=== PATIENT | male | born 1975 | race Caucasian/White ===

== ENCOUNTER 2022-02-14 08:36 | Outpatient (CLI) | payer BC, SELFPAY ==
[2022-02-14 13:51] LABS: Basophils Absolute Auto 0.05 K/uL (0.00-0.30); Hematocrit 51.5 % (37.0-53.0); Hemoglobin* 17.7 gm/dL (13.5-17.5); Lymphocytes Absolute Auto 1.53 K/uL (0.90-2.90); Lymphocytes Percent Auto 30.4 % (20-44); Mean Corpuscular HGB Conc 34 gm/dL (32-36); Mean Corpuscular Hemoglobin 27 pg (26-34); Mean Corpuscular Volume 80 fL (80-100); Monocytes Percent Auto 10.5 % (0.0-11.0); Neutrophils Absolute Auto 2.72 K/uL (1.7-7.0); Neutrophils Percent Auto 54.1 % (42.0-72.0); Platelet Count* 261 K/uL (140-440); RDW Coefficient of Variation % 13.3 % (11.5-15.5); Red Blood Count 6.48 m/uL (4.30-5.90); White Blood Count* 5.03 K/uL (4.50-11.00)
[2022-02-14 13:52] LABS: Slide Review Reflex No
[2022-02-14 14:27] LABS: Cholesterol* 194 mg/dL (90-199); Glucose* 84 mg/dL (60-115); Triglycerides* 104 mg/dL (40-149)
[2022-02-14 14:28] LABS: HDL Cholesterol* 64 mg/dL (>=40); LDL Cholesterol Calculated 109 mg/dL (<100)
== END 2022-02-14 08:37 | disposition home or self-care (01) ==
PROVIDERS: PCP Nurse Practitioner Family; Visit Provider Nurse Practitioner Family
DX: Z13.1 Encounter for screening for diabetes mellitus (principal); Z13.0 Encounter for screening for diseases of the blood and blood-forming organs and certain disorders involving the immune mechanism; Z13.6 Encounter for screening for cardiovascular disorders
CPT/HCPCS: 80061; 82947; 85025

== ENCOUNTER 2023-02-13 08:37 | Outpatient (CLI) | payer BC, SELFPAY | END 2023-02-13 08:38 | disposition home or self-care (01) | PROVIDERS: PCP Nurse Practitioner Family; Visit Provider Nurse Practitioner Family | DX: Z13.9 Encounter for screening, unspecified (principal) | CPT/HCPCS: 82947; 84403 ==

== ENCOUNTER 2023-12-19 09:10 | Outpatient (CLI) | payer BC, SELFPAY | END 2023-12-19 09:11 | disposition home or self-care (01) | PROVIDERS: PCP Nurse Practitioner Family; Visit Provider Nurse Practitioner Family | DX: M25.50 Pain in unspecified joint (principal); M10.9 Gout, unspecified; M54.50 Low back pain, unspecified | CPT/HCPCS: 84550; 85651; 86038; 86039; 86140; 86200; 86431; 86812 ==

== ENCOUNTER 2024-02-11 07:59 | Outpatient (CLI) | payer BC, SELFPAY ==
--- NOTE | 2024-02-11 08:15 | CRLHL7_ITS ---
For Patients: As a result of the Century Cures Act, medical imaging exams and procedure reports are released immediately into your electronic medical record. You may view this report before your referring provider. If you have questions, please contact your health care provider. Technique: Double-contrast esophagram performed after the uneventful administration of effervescent crystals and thick barium followed by thin barium. Fluoroscopy time 1 minute 10 seconds. Indication: FOREIGN BODY SENSATION - THROAT Comparison: None. Findings: Esophagus: Normal morphology and motility. No stricture or mass. Gastroesophageal reflux: None. Impression: Normal double-contrast esophagram. Dictated by Cedric Arredondo MD @ 02/11/2024 12:04:55 PM (Electronically Signed)
== END 2024-02-11 08:00 | disposition home or self-care (01) ==
LOC: RAD 08:01
PROVIDERS: PCP Nurse Practitioner Family; Visit Provider Otolaryngology
DX: R13.10 Dysphagia, unspecified (principal); R09.A2 Foreign body sensation, throat
CPT/HCPCS: 74221

== ENCOUNTER 2024-03-01 18:13 | Outpatient (CLI) | payer BC, SELFPAY ==
--- NOTE | 2024-03-10 08:45 | W.PM.SLEEP ---
Sleep Study Details Details Interpreting Provider: Breann Date of Sleep Study: 03/01/24 Sleep Study Details: STUDY TYPE:? Home unattended ? BMI:? 31.9 ORDERING PROVIDER:? Breann INDICATION:? Concerns about sleep apnea ? SLEEP SUMMARY:? 416 minutes monitored RESPIRATORY SUMMARY:? AHI 27.4 Low oxygen 79 1% of study oxygen less than 90% Snoring 64.5% PERIODIC LIMB MOVEMENTS OF SLEEP:? Not record CARDIAC:? Range 53-105, mean 64.5 beats per minute IMPRESSION:? Moderate obstructive sleep apnea RECOMMENDATION: Treatment options include CPAP and dental appliance.
== END 2024-03-01 18:14 | disposition home or self-care (01) ==
LOC: SLEEP 18:14
PROVIDERS: PCP Nurse Practitioner Family; Visit Provider Otolaryngology
DX: G47.33 Obstructive sleep apnea (adult) (pediatric) (principal)
CPT/HCPCS: 95806

== ENCOUNTER 2024-03-22 08:55 | Outpatient (CLI) | payer BC, SELFPAY | END 2024-03-22 08:56 | disposition home or self-care (01) | PROVIDERS: PCP Nurse Practitioner Family; Visit Provider Nurse Practitioner Family | DX: R79.89 Other specified abnormal findings of blood chemistry (principal); M1A.9XX0 Chronic gout, unspecified, without tophus (tophi) | CPT/HCPCS: 84403; 84550 ==

== ENCOUNTER 2024-07-23 09:11 | Outpatient (CLI) | payer BC, SELFPAY | END 2024-07-23 09:12 | disposition home or self-care (01) | PROVIDERS: PCP Nurse Practitioner Family; Visit Provider Nurse Practitioner Family | DX: M10.9 Gout, unspecified (principal); Z13.228 Encounter for screening for other metabolic disorders; Z13.6 Encounter for screening for cardiovascular disorders; Z13.0 Encounter for screening for diseases of the blood and blood-forming organs and certain disorders involving the immune mechanism | CPT/HCPCS: 80053; 80061; 84550; 85025 ==

== ENCOUNTER 2024-08-27 13:20 | Outpatient (CLI) | payer BC, SELFPAY ==
--- NOTE | 2024-08-27 13:45 | MR_ITS ---
[address] [address] Phone:?[phone] Fax:?[phone] Referring Physician Information: Rick Rivera M.D. [address] [facility] [address] Phone:?[phone] Fax:?[phone] Patient:Matias Cat D.O.B:?1975 Sex:?Male Phone:?[phone] [facility] MRN:?[id number] Exam Date:?08/27/2024 EXAM: MRI of the LEFT KNEE, without contrast CLINICAL: Evaluate for medial meniscal tear. COMPARISONS: X-rays 08/24/2024. TECHNICAL: Multiplanar multisequence MRI of the left knee was obtained. SEDATION: None. CONTRAST: None. FINDINGS: Ligaments: ACL: Intact and unremarkable. PCL: Intact and unremarkable. MCL: There is mild soft tissue edema about the MCL which is likely reactive to the adjacent medial meniscal pathology. MCL otherwise appears intact. LCL: Intact and unremarkable. Posterolateral corner: Popliteus, biceps femoris, iliotibial band, and the popliteofibular ligament appear intact. Posteromedial corner: Semimembranosus, pes anserine tendons and posterior oblique ligament appear intact. Extensor mechanism: Patellar tendon: Intact, without tendinopathy. Quadriceps tendon: Intact, without tendinopathy. Retinacula: Medial and lateral retinacula are intact. Fat pads: There is increased edema involving superior Hoffa's fat. Patellofemoral joint: Patella: No significant chondromalacia. Trochlea: Deep chondral fissuring and small segment of deep chondral delamination involves the superior central trochlea on axial series 4 images 12- 13. There is also grade 2 and 3 chondral loss involving the central trochlea inferior to this extending into the medial trochlea with adjacent subchondral reactive marrow edema. Medial compartment: Medial meniscus: There is horizontal dominant complex tearing involving the posterior horn extending into the body segment on sagittal series 6 image 7-9 and coronal series 8 image 19-23. No significant meniscal displacement. Medial cartilage: No significant chondromalacia. Lateral compartment: Lateral meniscus: No evidence of discrete meniscal tear or meniscal displacement. Lateral cartilage: No significant chondromalacia. Knee joint: Effusion: Moderate sized partially visualized left knee effusion. Intra-articular bodies:?No convincing bodies identified. Popliteal cyst: None. Bones: There is reactive marrow edema seen to involve the peripheral lateral tibial plateau adjacent to the lateral meniscal tear. Subchondral reactive marrow edema is seen to involve the trochlea. No discrete fracture identified. Ganglion cyst formation is present within the lateral knee subcutaneous soft tissues adjacent to the conjoined distal LCL and biceps femoris tendon and adjacent to the lateral proximal tibia measuring approximately 3.3 cm in AP dimension on axial series 4 image 24-28. Mild adjacent subcutaneous soft tissue edema noted. IMPRESSION: 1. Tearing of the medial meniscus as above with reactive marrow edema involving the adjacent peripheral medial tibial plateau. 2. Mild soft tissue edema about the MCL is likely reactive to the adjacent medial meniscal pathology. Ligamentous structures otherwise appear intact. 3. Trochlear chondral loss as above with adjacent subchondral reactive marrow edema. 4. Moderate sized partially visualized joint effusion. 5. Ganglion cyst formation involving the lateral knee subcutaneous soft tissues adjacent to the conjoined distal biceps femoris tendon/LCL and lateral proximal tibia measuring approximately 3.3 cm in size. BOBBY Electronically signed on 08/27/2024 6:03:00 PM by Erwin Deras D.O.
== END 2024-08-27 13:21 | disposition home or self-care (01) ==
LOC: MRI 13:21
PROVIDERS: PCP Nurse Practitioner Family; Visit Provider Orthopaedic Surgery Sports Medicine
DX: M25.562 Pain in left knee (principal); S83.222A Peripheral tear of medial meniscus, current injury, left knee, initial encounter; M25.462 Effusion, left knee; M67.462 Ganglion, left knee
CPT/HCPCS: 73721

== ENCOUNTER 2024-11-16 08:03 | Outpatient (CLI) | payer BC, SELFPAY ==
--- NOTE | 2024-11-16 08:15 | CRLHL7_ITS ---
For Patients: As a result of the Century Cures Act, medical imaging exams and procedure reports are released immediately into your electronic medical record. You may view this report before your referring provider. If you have questions, please contact your health care provider. INDICATION: Abdominal pain. TECHNIQUE: Ultrasound abdomen complete. Sonographic images of the entire abdomen were obtained using rosales-scale and color Doppler. COMPARISON: None. FINDINGS: Liver: Normal-size. Homogeneous echotexture with moderately hyperechoic parenchyma and decreased acoustic penetration. No masses. No intrahepatic biliary dilatation. Gallbladder: No stones or sludge. Normal wall thickness. No pericholecystic fluid. Petal Cutter reports a negative Finch`s sign. Common bile duct: 5 mm. Pancreas: Portions of the tail are obscured by overlying bowel gas. Normal in size and appearance. Spleen: Normal in size and appearance. Kidneys: Both kidneys are normal in size. Normal echotexture and cortex. No suspicious masses, stones, or hydronephrosis. Vasculature: Proximal abdominal aorta and IVC are normal in caliber. Main portal vein patent. IMPRESSION: [id number] hepatic steatosis. Dictated by Guy Rios MD @ 11/17/2024 2:31:44 PM (Electronically Signed)
== END 2024-11-16 08:04 | disposition home or self-care (01) ==
LOC: US 08:03
PROVIDERS: PCP Nurse Practitioner Family; Visit Provider Internal Medicine Hematology & Oncology
DX: R10.9 Unspecified abdominal pain (principal); K76.0 Fatty (change of) liver, not elsewhere classified; R74.01 Elevation of levels of liver transaminase levels
CPT/HCPCS: 76700

== ENCOUNTER 2024-11-26 14:24 | Outpatient (CLI) | payer BC, SELFPAY | END 2024-11-26 14:25 | disposition home or self-care (01) | PROVIDERS: PCP Nurse Practitioner Family; Visit Provider Nurse Practitioner Family | DX: R19.7 Diarrhea, unspecified (principal) | CPT/HCPCS: 87177; 87209; 87338; 87493; 87505 ==

== ENCOUNTER 2025-01-04 10:02 | Outpatient (CLI) | payer BC, SELFPAY ==
[2025-01-04 10:18] VITALS: BMI 33.4
[2025-01-04 10:30] VITALS: BP 144/76; PULSE 52; RESP 16; TEMP 36.7; O2SAT 100
[2025-01-04 11:15] VITALS: BP 127/84; PULSE 72; RESP 12; O2SAT 98
--- NOTE | 2025-01-04 11:17 | P.ANES_ITS ---
Anesthesia Charges Start Date/Time Anesthesia Start Date: 01/04/25 Anesthesia Start Time: 11:00 Stop Date/Time Anesthesia Stop Date: 01/04/25 Anesthesia Stop Time: 11:15 Coding CPT Codes CPT Codes: ANESTH BONE ASPIRATE/BX - 89803 ([id number]) P2 - PATIENT W/MILD SYST DISEASE, QK - ORGAN TEACHER 2-4 CNCRNT ANES PROC, QX - ASSISTANT ART DIRECTOR SVC W/ MD MED DIRECTION
--- NOTE | 2025-01-04 11:17 | W.ANESCHARGE ---
Anesthesia Charges Start Date/Time Anesthesia Start Date: 01/04/25 Anesthesia Start Time: 11:00 Stop Date/Time Anesthesia Stop Date: 01/04/25 Anesthesia Stop Time: 11:15 Coding CPT Codes CPT Codes: ANESTH BONE ASPIRATE/BX - 78192 ([id number]) P2 - PATIENT W/MILD SYST DISEASE, QK - ENGRAVER HAND SOFT METALS 2-4 CNCRNT ANES PROC, QX - INTERNATIONAL STUDENT ADVISOR SVC W/ MD MED DIRECTION
[2025-01-04 11:25] VITALS: BP 123/63; PULSE 61; RESP 14; O2SAT 98
--- NOTE | 2025-01-04 11:26 | P.ANES_ITS ---
Anesthesia Charges Start Date/Time Anesthesia Start Date: 01/04/25 Anesthesia Start Time: 11:00 Stop Date/Time Anesthesia Stop Date: 01/04/25 Anesthesia Stop Time: 11:15 Coding CPT Codes CPT Codes: ANESTH BONE ASPIRATE/BX - 90492 ([id number]) P2 - PATIENT W/MILD SYST DISEASE, QK - SENIOR WEB SERVICES DEVELOPER 2-4 CNCRNT ANES PROC, QX - BREAD WRAPPER SVC W/ MD MED DIRECTION
--- NOTE | 2025-01-04 11:26 | W.ANESCHARGE ---
Anesthesia Charges Start Date/Time Anesthesia Start Date: 01/04/25 Anesthesia Start Time: 11:00 Stop Date/Time Anesthesia Stop Date: 01/04/25 Anesthesia Stop Time: 11:15 Coding CPT Codes CPT Codes: ANESTH BONE ASPIRATE/BX - 55872 ([id number]) P2 - PATIENT W/MILD SYST DISEASE, QK - ASIC ENGINEER 2-4 CNCRNT ANES PROC, QX - PARTS COORDINATOR SVC W/ MD MED DIRECTION
[2025-01-04 11:30] LABS: Hematocrit* 51.8 % (37.0-53.0); Hemoglobin* 17.6 gm/dL (13.5-17.5); Immature Granulocytes Abs Auto 0.02 K/uL (0.00-0.30); Immature Granulocytes Pct Auto 0.3 %; Immature Reticulocyte Fraction 24.5 % (2.3-13.4); Lymphocytes Absolute Auto 1.62 K/uL (0.90-2.90); Mean Corpuscular HGB Conc 34 gm/dL (32-36); Mean Corpuscular Hemoglobin 29 pg (26-34); Mean Corpuscular Volume 84 fL (80-100); RDW Coefficient of Variation % 12.8 % (11.5-15.5); Red Blood Count* 6.15 m/uL (4.30-5.90); Reticulocyte Hemoglobin Equivi 31.8 pg (29.0-35.0); Reticulocytes Absolute 0.12 # (0.03-0.08); White Blood Count* 5.97 K/uL (4.50-11.00)
[2025-01-04 11:35] VITALS: BP 123/83; PULSE 57; RESP 16; O2SAT 98
[2025-01-04 11:36] LABS: Slide Review Reflex No
--- NOTE | 2025-01-04 12:02 | PC.NURSE ---
LUKE Staley notified of drainage from patient's dressing. Verbal instructions to redress operative site with 4x4 gauze, and large tegaderm. Apply ice to site. 30 additional minutes back applying pressure. Dressing complete. Ice applied. VSS Denies pain. Reassess wound at 1230. Notify [facility] of continuing drainage, otherwise patient may discharge.
[2025-01-04 12:30] VITALS: BP 129/81; PULSE 59; RESP 16; O2SAT 99
--- NOTE | 2025-01-05 07:55 | PC.NURSE ---
0730: Patient called with concerns of blood on his dressing. Patient states blood is the size of a half dollar on the dressing. He first noticed blood on the dressing last night. The size of it increased over night. Filling And Stapling Machine Operator called [facility]. Rebeka stated patient should follow-up and be assessed by Dr. Morillo with [facility] or go to the ER to be seen. Filling And Stapling Machine Operator called [facility] and spoke with ELA Mann. Mackenzie stated patient should be evaluated in the ER. 0748: Filling And Stapling Machine Operator called patient back and stated he should go to the ER for evaluation per Lizbeth. Patient asked how emergent this is. Filling And Stapling Machine Operator stated per patient's discharge instructions, patient should seek care immediately for blood soaking through his bandage. Patient states he's working in [place] and will get to the ER when he can.
== END 2025-01-04 12:35 | disposition home or self-care (01) ==
PROVIDERS: PCP Nurse Practitioner Family; Visit Provider Internal Medicine Hematology & Oncology
DX: D75.1 Secondary polycythemia (principal)
CPT/HCPCS: 01112; 36415; 38222; 85025; 85045; 88237; 88264; 88305; 88311; 88313; 88341; 88342; 88360; J1644; J2003; J2704

== ENCOUNTER 2025-01-05 12:04 | Emergency (ER) | payer BC, SELFPAY ==
[2025-01-05 12:14] VITALS: BP 126/82; PULSE 67; RESP 18; TEMP 36.6; O2SAT 97; BMI 32.5
--- NOTE | 2025-01-05 12:18 | ED.GENADULT ---
HPI - General Adult General Time Seen by Provider: 12:19 Date Seen: 01/05/25 Chief complaint: Post Op Complication Stated complaint: Incision bleeding lower R hip Time Seen by Provider: 01/05/25 12:18 Source: patient and RN notes reviewed Mode of arrival: ambulatory Limitations: no limitations History of Present Illness HPI narrative: This 49-year-old male had a bone marrow biopsy yesterday here and evaluation for polycythemia. He notes a half dollar size bleeding through the bandage. He talk to his provider who recommended that he be checked in the ER. No fevers or chills, no pain. This dressing was placed yesterday, he has not had to change any dressings. He was told to leave it on for 48 hours, he has not touched the current dressing. Related Data Home Medications ?Medication ?Instructions ?Recorded ?Confirmed qdhvtox-xyftmzqyakesk-rcgtemjs 250 2 tab PO Q6H PRN 12/19/23 12/17/24 mg-250 mg-65 mg tablet (Excedrin Migraine) indomethacin 50 mg capsule 50 mg PO TID PRN 08/17/24 01/05/25 prednisone 20 mg tablet 20 mg PO BID PRN 08/17/24 12/17/24 anastrozole 1 mg tablet 1 mg PO .3 times a week 12/17/24 01/05/25 testosterone enanthate 100 mg/0.5 mg subcut 12/17/24 12/17/24 mL subcutaneous auto-injector (Xyosted) omeprazole 40 mg capsule,delayed 40 mg PO DAILY 01/05/25 01/05/25 release Previous Rx's ?Medication ?Instructions ?Recorded albuterol sulfate 90 mcg/actuation 2 inh inhalation Q4-6H PRN 02/14/22 aerosol inhaler (ProAir HFA) shortness of breath or wheezing 30 days #8.5 grams beclomethasone dipropionate 80 1 inh inhalation BID 90 days #31.8 08/11/23 mcg/actuation HFA breath activated grams aerosol (Qvar RediHaler) montelukast 10 mg tablet 10 mg PO DAILY 90 days #90 tabs 04/06/24 allopurinol 200 mg tablet 400 mg (2 x 200 mg) PO QDAY #180 06/08/24 tabs Allergies Allergy/AdvReac Type Severity Reaction Status Date / Time No Known Drug Allergies Allergy Verified 01/05/25 12:13 [facility] Medical History (Updated 01/05/25 @ 12:27 by Tammy Germain MD) Right shoulder pain ?M25.511 - Pain in right shoulder (ICD-10) Gastroesophageal reflux disease ?K21.9 - Gastro-esophageal reflux disease without esophagitis (ICD-10) Surgical History (Updated 01/05/25 @ 08:25 by Corie Hughes APRN, APPLICATIONS ENGINEER MANUFACTURING) History of colonoscopy ?Z98.890 - Other specified postprocedural states (ICD-10) History of esophagogastroduodenoscopy (EGD) ?Z98.890 - Other specified postprocedural states (ICD-10) History of shoulder surgery (01/23/18) ?Z98.890 - Other specified postprocedural states (ICD-10) History of laser assisted in situ keratomileusis ?Z98.890 - Other specified postprocedural states (ICD-10) History of appendectomy ?Z90.49 - Acquired absence of other specified parts of digestive tract (ICD-10) Family History Father Diabetes High blood pressure Prostate cancer, Onset Age: 70 Uncle Diabetes Paternal Grandmother Diabetes Paternal Grandfather Prostate cancer, Onset Age: 89 Uncle Diabetes Social History (Updated 11/29/24 @ 18:44 by Corie Hughes APRN, APPLICATIONS ENGINEER MANUFACTURING) Narrative: Works for [employer]. Non-smoker. No illicit drug use. Occasional alcohol intake. What is your current living situation?: I presently have a place to live Problems where you live: no known problems In the past 12 months, utilities in danger of being shut off: no In past 12 months, lack of transportation kept you from medical appts, meetings, work, or getting things needed for daily living: no In the past 12 mos, have been you worried that your food would run out before you had money to buy more?: never true In the past 12 mos, the food you bought just didn't last and you didn't have money to buy more?: never true Smoking Status: Never smoker How often does anyone, including family, friends and others, physically hurt you: never How often does anyone, including family, friends and others, insult or talk down to you: never How often does anyone, including family, friends and others, threaten you with harm: never How often does anyone, including family, friends and others, scream or curse at you: never Exam Const: Vital Signs, click to edit/add: Vital Signs - 24 hr 01/05/25 12:14 Temperature 97.9 F Pulse Rate [Pulse Oximeter] 67 Respiratory Rate 18 Blood Pressure [Ri ght Upper Arm] 126/82 Pulse Oximetry 97 Oxygen Delivery Me thod Room Air Patient has a dressing overlying his right lower back/upper buttock area. There is a clear Tegaderm and a central full did up gauze. There is indeed about a half-dollar size area of blood on the gauze. The gauze is not saturated, the bandage was removed. The blood on the gauze is firm and dry, nothing is soft or actively bleeding. The wound from the biopsy is clean and dry, no erythema, no active bleeding. Reviewed with patient that this bleeding likely happened yesterday sometime after the biopsy or perhaps shortly after. There is no active bleeding at this time. We did reapply a new 4 by 4 folded and clear Tegaderm. Documenting provider has reviewed patient's vital signs: yes Course Course ED Course: Wound inspected, dressing reapplied. Patient had some old blood that most likely was from shortly after the procedure. There is no active bleeding now. He will continue to watch the wound, continue to follow any recommendations are restrictions from his biopsy. Vital Signs Vital signs: Initial Vital Signs Temperature 97.9 F 01/05/25 12:14 Temperature Source Temporal Artery Scan 01/05/25 12:14 Pulse Rate 67 01/05/25 12:14 Respiratory Rate 18 01/05/25 12:14 Blood Pressure 126/82 01/05/25 12:14 Blood Pressure Mean 96 01/05/25 12:14 Pulse Oximetry 97 01/05/25 12:14 Oxygen Delivery Method Room Air 01/05/25 12:14 Vital Signs Temperature 97.9 F 01/05/25 12:14 Pulse Rate 67 01/05/25 12:14 Respiratory Rate 18 01/05/25 12:14 Blood Pressure 126/82 01/05/25 12:14 Pulse Oximetry 97 01/05/25 12:14 Oxygen Delivery Method Room Air 01/05/25 12:14 Temperature 97.9 F 01/05/25 12:14 Pulse Rate 67 01/05/25 12:14 Respiratory Rate 18 01/05/25 12:14 Blood Pressure 126/82 01/05/25 12:14 Pulse Oximetry 97 01/05/25 12:14 Oxygen Delivery Method Room Air 01/05/25 12:14 Discharge Plan Discharge Clinical Impression: Visit for wound check Patient Disposition: Home, Self-Care Condition: Stable Instructions: Bone Marrow Biopsy (DC) Additional Instructions: The blood on the bandaging was very likely from yesterday, there is no evidence of any active bleeding. This probably came from the skin but has stopped. Your wound looks excellent, there is no active bleeding, no concern for any infection at this time. We did reapply the dressing over this, can remove this tomorrow as they advised you at the time of your biopsy. If you have further concerns, please seek re-evaluation. Continue with any restrictions or discharge recommendations from your bone marrow biopsy. Prescriptions: No Action albuterol sulfate [ProAir HFA] 90 mcg/actuation HFA aerosol inhaler 2 inh inhalation Q4-6H PRN (Reason: shortness of breath or wheezing) 30 Days Qty: 8.5 3RF Excedrin Migraine 250-250-65 mg tablet 2 tab PO Q6H PRN indomethacin 50 mg capsule 50 mg PO TID PRN Rx Instructions: administer with food or milk prednisone 20 mg tablet 20 mg PO BID PRN Xyosted 100 mg/0.5 mL auto-injector subcut anastrozole 1 mg tablet 1 mg PO .3 times a week Patient Comments: three times a week omeprazole 40 mg capsule,delayed release(DR/EC) 40 mg PO DAILY Qvar RediHaler 80 mcg/actuation HFA aerosol breath activated 1 inh inhalation BID 90 Days Qty: 31.8 2RF montelukast 10 mg tablet 10 mg PO DAILY 90 Days Qty: 90 3RF allopurinol 200 mg tablet 400 mg PO QDAY Qty: 180 3RF Follow Up/Referrals: Corie Hughes, [employer] P[employer]ING SUPERINTENDENT, APPLICATIONS ENGINEER MANUFACTURING [Primary Care Provider, Family Practice] Stand Alone Forms: MyHealth Info Instructions
== END 2025-01-05 12:40 | disposition home or self-care (01) ==
LOC: ED 12:30
PROVIDERS: Emergency Provider Family Medicine; PCP Nurse Practitioner Family
DX: Z48.01 Encounter for change or removal of surgical wound dressing (principal)
CPT/HCPCS: 99282

== ENCOUNTER 2025-01-10 09:30 | Outpatient (RCR) | payer BC, SELFPAY ==
[2024-08-17 14:14] LABS: Hematocrit* 55.9 % (37.0-53.0); Hemoglobin* 19.2 gm/dL (13.5-17.5); Immature Granulocytes Abs Auto 0.03 K/uL (0.00-0.30); Immature Granulocytes Pct Auto 0.4 %; Lymphocytes Absolute Auto 1.76 K/uL (0.90-2.90); Mean Corpuscular HGB Conc 34 gm/dL (32-36); Mean Corpuscular Hemoglobin 29 pg (26-34); Mean Corpuscular Volume 83 fL (80-100); RDW Coefficient of Variation % 14.0 % (11.5-15.5); Red Blood Count* 6.73 m/uL (4.30-5.90); White Blood Count* 7.62 K/uL (4.50-11.00)
[2024-08-17 14:30] LABS: Slide Review Reflex No
[2024-08-17 14:38] LABS: Chloride* 102 mmol/L (96-114)
[2024-08-17 14:39] LABS: Albumin* 4.9 g/dL (3.3-5.0); Potassium* 3.6 mmol/L (3.6-5.1); Sodium* 141 mmol/L (135-149)
[2024-08-17 14:41] LABS: Alanine Aminotransferase* 63 U/L (4-50); Anion Gap 12 mEq/L (7-15); Aspartate Amino Transferase* 64 U/L (12-35); Blood Urea Nitrogen* 16 mg/dL (5-24); Carbon Dioxide* 27 mmol/L (20-32); Creatinine* 1.3 mg/dL (0.5-1.5); Est. Creatinine Clearance* 73.21; Estimated Glomerular Filt Rate 67 ml/min
[2024-08-17 14:42] LABS: Alkaline Phosphatase* 53 U/L (40-150); Bilirubin Total* 0.9 mg/dL (0.1-1.5); Calcium* 10.1 mg/dL (8.4-10.6); Glucose* 111 mg/dL (60-115)
[2024-08-17 14:45] LABS: Total Protein* 7.7 g/dL (6.0-8.3)
[2024-08-17 15:08] LABS: Iron* 106 ug/dL (49-181)
[2024-08-17 15:18] LABS: Percent Iron Saturation 22 % (20-50); Total Iron Binding Capacity 491 ug/dL (261-462)
[2024-09-17 11:25] LABS: Hematocrit* 54.4 % (37.0-53.0); Hemoglobin* 18.4 gm/dL (13.5-17.5); Immature Granulocytes Abs Auto 0.00 K/uL (0.00-0.30); Immature Granulocytes Pct Auto 0.0 %; Lymphocytes Absolute Auto 1.64 K/uL (0.90-2.90); Mean Corpuscular HGB Conc 34 gm/dL (32-36); Mean Corpuscular Hemoglobin 28 pg (26-34); Mean Corpuscular Volume 84 fL (80-100); RDW Coefficient of Variation % 13.0 % (11.5-15.5); Red Blood Count* 6.48 m/uL (4.30-5.90); White Blood Count* 5.91 K/uL (4.50-11.00)
[2024-09-17 11:29] LABS: Slide Review Reflex No
[2024-10-15 10:42] LABS: Hematocrit* 56.1 % (37.0-53.0); Hemoglobin* 19.1 gm/dL (13.5-17.5); Immature Granulocytes Abs Auto 0.03 K/uL (0.00-0.30); Immature Granulocytes Pct Auto 0.4 %; Lymphocytes Absolute Auto 1.70 K/uL (0.90-2.90); Mean Corpuscular HGB Conc 34 gm/dL (32-36); Mean Corpuscular Hemoglobin 29 pg (26-34); Mean Corpuscular Volume 84 fL (80-100); RDW Coefficient of Variation % 13.1 % (11.5-15.5); Red Blood Count* 6.65 m/uL (4.30-5.90); White Blood Count* 6.84 K/uL (4.50-11.00)
[2024-10-15 11:18] LABS: Slide Review Reflex No
[2024-11-16 09:16] LABS: Hematocrit* 57.1 % (37.0-53.0); Hemoglobin* 19.4 gm/dL (13.5-17.5); Immature Granulocytes Abs Auto 0.05 K/uL (0.00-0.30); Immature Granulocytes Pct Auto 0.7 %; Lymphocytes Absolute Auto 1.53 K/uL (0.90-2.90); Mean Corpuscular HGB Conc 34 gm/dL (32-36); Mean Corpuscular Hemoglobin 29 pg (26-34); Mean Corpuscular Volume 85 fL (80-100); RDW Coefficient of Variation % 13.1 % (11.5-15.5); Red Blood Count* 6.76 m/uL (4.30-5.90); White Blood Count* 7.51 K/uL (4.50-11.00)
[2024-11-16 09:18] LABS: Slide Review Reflex No
[2024-11-16 09:32] LABS: Albumin* 4.7 g/dL (3.3-5.0); Chloride* 103 mmol/L (96-114)
[2024-11-16 09:33] LABS: Potassium* 4.5 mmol/L (3.6-5.1); Sodium* 137 mmol/L (135-149)
[2024-11-16 09:35] LABS: Blood Urea Nitrogen* 22 mg/dL (5-24); Creatinine* 1.2 mg/dL (0.5-1.5); Est. Creatinine Clearance* 79.31; Estimated Glomerular Filt Rate 74 ml/min
[2024-11-16 09:36] LABS: Alanine Aminotransferase* 59 U/L (4-50); Alkaline Phosphatase* 62 U/L (40-150); Anion Gap 7 mEq/L (7-15); Aspartate Amino Transferase* 47 U/L (12-35); Bilirubin Total* 0.8 mg/dL (0.1-1.5); Calcium* 10.1 mg/dL (8.4-10.6); Carbon Dioxide* 27 mmol/L (20-32); Glucose* 90 mg/dL (60-115); Total Protein* 7.9 g/dL (6.0-8.3)
[2024-11-16 10:08] LABS: TSH With Reflex to FT4* 2.830 uIU/mL (0.270-4.200)
[2024-11-16 10:55] LABS: Erythrocyte SedimentationRate* 2 mm/hr (2-15)
[2024-11-17 22:27] LABS: Gliadin Peptide Ab, IgA <0.72 FLU (0.00-4.99)
[2024-11-18 00:34] LABS: Lyme ELISA Reflex 0.19 IV (<=0.90)
[2024-11-18 00:54] LABS: Immunoglobulin A 151 mg/dL (68-408)
[2024-11-18 01:15] LABS: Anti-Nuclear Ab(ANA)IgG ELISA Detected (None Detected)
[2024-11-20 17:04] LABS: ANA Pattern Homogeneous; ANA Titer 1:80; Antinuclear AntibodyHEp-2 Detected (<1:80)
[2025-01-10 10:13] LABS: Hematocrit* 50.4 % (37.0-53.0); Hemoglobin* 17.1 gm/dL (13.5-17.5); Immature Granulocytes Abs Auto 0.04 K/uL (0.00-0.30); Immature Granulocytes Pct Auto 0.6 %; Lymphocytes Absolute Auto 1.63 K/uL (0.90-2.90); Mean Corpuscular HGB Conc 34 gm/dL (32-36); Mean Corpuscular Hemoglobin 29 pg (26-34); Mean Corpuscular Volume 84 fL (80-100); RDW Coefficient of Variation % 12.9 % (11.5-15.5); Red Blood Count* 5.97 m/uL (4.30-5.90); White Blood Count* 6.65 K/uL (4.50-11.00)
[2025-01-10 10:23] LABS: Slide Review Reflex No
[2025-01-10] MEDS: SODIUM CHLORIDE 0.9 % (FLUSH) 10 ML SYRINGE IVF (11:00)
[2025-01-10] MEDS: 0.9 % SODIUM CHLORIDE 500 ML 500 ML IV (11:00)
== END 2025-02-02 23:59 | disposition home or self-care (01) ==
LOC: CCIC 09:30
PROVIDERS: Clinical Nurse Specialist; PCP Nurse Practitioner Family; Referring Provider Nurse Practitioner Family; Visit Provider Internal Medicine Hematology & Oncology
DX: D58.2 Other hemoglobinopathies (principal); G47.33 Obstructive sleep apnea (adult) (pediatric); Z79.890 Hormone replacement therapy
CPT/HCPCS: 36415; 80050; 80053; 81219; 81270; 81338; 82150; 82668; 82728; 82784; 83540; 83550; 83690; 84443; 84550; 85025; 85651; 86038; 86140; 86231; 86258; 86364; 86431; 86618; 96360; 99195; 99204; 99214; 99215; G0463; J7030

== ENCOUNTER 2025-01-19 10:59 | Day surgery (SDC) | payer BC, SELFPAY ==
[2025-01-19] VITALS (10 sets, daily range): BP systolic 109–173; BP diastolic 66–104; PULSE 52–68; RESP 14–16; TEMP 36.6; O2SAT 95–100; BMI 33.6
[2025-01-19] MEDS: SODIUM CHLORIDE 0.9 % (FLUSH) 10 ML SYRINGE IVF (11:40)
[2025-01-19] MEDS: LACTATED RINGERS 1000 ML 1,000 ML 100 ML IV (11:40)
[2025-01-19] MEDS: ROPIVACAINE 0.5% 30 ML 150 MG INJECTION (13:00)
--- NOTE | 2025-01-19 13:19 | W.PM.H&PU ---
History & Physical Update History & Physical Update H&P Reviewed and patient assessed: No changes noted
--- NOTE | 2025-01-19 13:20 | PM.ORPRC ---
Procedure Note Date of procedure: 01/19/25 Procedure: PREOPERATIVE DIAGNOSIS: 1. Left knee medial meniscus tear POSTOPERATIVE DIAGNOSIS: 1. Left knee medial meniscus tear 2. 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 Left knee arthroscopic partial medial meniscectomy SURGEON: Rick Rivera M.D. PRINTED PRODUCTS ASSEMBLER: Celi CORDERO. Of note, an research assistant member was critical for this case to aid in patient positioning, knee manipulation, instrument exchange, and closure. ANESTHESIA: Spinal EBL: 2ml TOURNIQUET: 30 min at 250 torr COMPLICATIONS: None evident INDICATIONS: The patient is a pleasant 49-year-old male who has experienced left knee pain particularly with any twisting or turning. Physical exam was concerning for medial meniscus tear, this was confirmed on MRI. Additionally, attempted nonoperative management has been tried, and failed. Thus, surgery was recommended. FINDINGS: Complex tearing posterior horn to midbody medial meniscus. A displaced flap was flipped into the medial gutter adjacent to the medial tibial plateau. There was extension approaching the posterior root, but the posterior root was clearly intact. Lateral meniscus intact. ACL and PCL intact and robust. Medial and lateral tibial femoral compartments showed healthy articular cartilage. Patellar femoral compartment showed relatively healthy patellar articular cartilage but grade 4 chondromalacia trochlear groove extending to the distal aspect of the medial femoral condyle where the medial facet would articulate. DESCRIPTION OF PROCEDURE: After a thorough discussion of risks, benefits, and alternatives, the patient was brought to the operating room and placed upon the operating table. Induction of anesthesia was undertaken as previously noted. 2g iv Ancef was administered within 1 hr of incision preoperatively. Appropriate time-out was performed identifying proper patient, site, and procedure. The left lower extremity was prepped and draped in the appropriate sterile fashion using ChloraPrep. The limb was exsanguinated and tourniquet inflated. Anterolateral and anteromedial portals were established with an 11 blade, and a diagnostic arthroscopy was performed. This identified the findings as noted above. Following the diagnostic arthroscopy, a partial medial menisectomy was performed with the combination of basket forceps and a motorized shaver. Following this, the meniscus was re-probed and found to be stable. Approximately 20-25% of the overall meniscus required resection. At this stage, the shaver was reinserted into the suprapatellar pouch and all remaining meniscal debris was evacuated. Instruments were removed, excess fluid was drained, and closure performed with 4-0 Monocryl with Steri-Strips. Dressings were applied, the tourniquet deflated, and the patient was awoken from anesthesia and transferred to the PACU in stable condition. PLAN: 1. Weightbear as tolerated operative extremity. Crutch / walker ambulation assistance PRN. Straight leg raise to be initiated starting tomorrow by the patient. 2. Ice, acetominophen and/or ibuprofen, and Oxycodone for pain as needed. 3. Knee range of motion and quad sets/straight leg raise regularly 4. Follow up with PA visit in 7-10 days. for a wound check. Initiate physical therapy at that time
--- NOTE | 2025-01-19 13:34 | P.ANES_ITS ---
Anesthesia Charges Start Date/Time Anesthesia Start Date: 01/19/25 Anesthesia Start Time: 12:30 Stop Date/Time Anesthesia Stop Date: 01/19/25 Anesthesia Stop Time: 13:32 Coding CPT Codes CPT Codes: ANESTH KNEE ARTHROPLASTY - 33948 ([id number]) P2 - PATIENT W/MILD SYST DISEASE, QK - GROOVER AND TURNER 2-4 CNCRNT ANES PROC, QX - VENEER LAYER SVC W/ MD MED DIRECTION
--- NOTE | 2025-01-19 13:34 | W.ANESCHARGE ---
Anesthesia Charges Start Date/Time Anesthesia Start Date: 01/19/25 Anesthesia Start Time: 12:30 Stop Date/Time Anesthesia Stop Date: 01/19/25 Anesthesia Stop Time: 13:32 Coding CPT Codes CPT Codes: ANESTH KNEE ARTHROPLASTY - 28082 ([id number]) P2 - PATIENT W/MILD SYST DISEASE, QK - PATIENT OMBUDSPERSON 2-4 CNCRNT ANES PROC, QX - PARTS CLERK SVC W/ MD MED DIRECTION
[2025-01-19] MEDS: HYDRALAZINE HCL 20 MG/ML inj 10 MG IVP (13:53)
--- NOTE | 2025-01-19 14:56 | P.ANES_ITS ---
Anesthesia Charges Start Date/Time Anesthesia Start Date: 01/19/25 Anesthesia Start Time: 12:30 Stop Date/Time Anesthesia Stop Date: 01/19/25 Anesthesia Stop Time: 13:32 Coding CPT Codes CPT Codes: ANESTH KNEE JOINT SURGERY - 15832 ([id number]) QK - BLAST FURNACE TENDER 2-4 CNCRNT ANES PROC, QX - LOSS PREVENTION SUPERVISOR SVC W/ MD MED DIRECTION, P2 - PATIENT W/MILD SYST DISEASE
--- NOTE | 2025-01-19 14:56 | W.ANESCHARGE ---
Anesthesia Charges Start Date/Time Anesthesia Start Date: 01/19/25 Anesthesia Start Time: 12:30 Stop Date/Time Anesthesia Stop Date: 01/19/25 Anesthesia Stop Time: 13:32 Coding CPT Codes CPT Codes: ANESTH KNEE JOINT SURGERY - 39143 ([id number]) QK - ELECTRICAL TECH/PROJECT MANAGER 2-4 CNCRNT ANES PROC, QX - CAD DESIGN ENGINEER SVC W/ MD MED DIRECTION, P2 - PATIENT W/MILD SYST DISEASE
== END 2025-01-19 14:50 | disposition home or self-care (01) ==
LOC: OR 11:00
PROVIDERS: PCP Nurse Practitioner Family; Visit Provider Orthopaedic Surgery Sports Medicine
PROC: (CPT 29870; principal; 2025-01-19 12:30)
DX: S83.232A Complex tear of medial meniscus, current injury, left knee, initial encounter (principal); M94.262 Chondromalacia, left knee
CPT/HCPCS: 29881; 01400; 01402; J0360; J0690; J2405; J2704; J2795; J3010; J7120

== ENCOUNTER 2025-03-10 15:16 | Outpatient (CLI) | payer BC, SELFPAY | END 2025-03-10 15:17 | disposition home or self-care (01) | PROVIDERS: PCP Nurse Practitioner Family; Visit Provider Nurse Practitioner Family | DX: E83.52 Hypercalcemia (principal); D45 Polycythemia vera | CPT/HCPCS: 80053; 85025 ==